=== PATIENT | female | born 1995 | race Caucasian/White ===

== ENCOUNTER 2024-07-16 14:20 | Emergency (ER) | payer OTHER ==
[~2024-07-16] VITALS: Ht 152.4 cm; Wt 52.6 kg
[~2024-07-16 14:20] MED LIST: HYDR-3980 PO; METO-295 PO
[2024-07-16] MEDS ORDERED: ONDANSETRON 4 MG/2 ML VIAL ONE (15:04)
[2024-07-16] MEDS ORDERED: HYDROMORPHONE 1 MG/1 ML DISP.SYRIN ONE (15:05)
[2024-07-16 15:20] LABS: BASOPHILS # (AUTO) 0.1 K/UL (0.0-0.2); BASOPHILS % (AUTO) 0.8 % (0.0-2.0); HEMATOCRIT 40.7 % (31.2-41.9); HEMOGLOBIN 13.7 g/dL (10.9-14.3); LYMPHOCYTES # (AUTO) 0.7 K/uL (0.8-4.8); LYMPHOCYTES % (AUTO) 6.2 % (20.5-51.5); MEAN CORPUSCULAR HEMOGLOBIN 31.9 uug (24.7-32.8); MEAN CORPUSCULAR HGB CONC 34 g/dL (32.3-35.6); MEAN CORPUSCULAR VOLUME 94.7 fL (75.5-95.3); MONOCYTES # (AUTO) 0.4 K/uL (0.1-1.30); MONOCYTES % (AUTO) 4.2 % (0.0-11.0); NEUTROPHILS # (AUTO) 9.3 K/uL (1.8-8.9); NEUTROPHILS % (AUTO) 88.8 % (38.5-71.5); PLATELET COUNT (AUTO) 278 K/uL (179-408); RED CELL DISTRIBUTION WIDTH 15.4 % (12.3-17.7); WHITE BLOOD COUNT (AUTO) 10.5 K/uL (3.8-11.8)
[2024-07-16] MEDS: HYDROMORPHONE 1 MG/1 ML DISP.SYRIN IV ONE (15:22)
[2024-07-16] MEDS: ONDANSETRON 4 MG/2 ML VIAL IV ONE (15:22)
[2024-07-16 15:27] LABS: CALCIUM 10.2 mg/dL (8.5-10.1); CARBON DIOXIDE 17 mmol/L (21-32); CHLORIDE 100 mmol/L (98-107); CREATININE 0.6 mg/dL (0.6-1.3); DIFFERENTIAL COMMENT 1; GLUCOSE 159 mg/dL (74-106); POTASSIUM 4.2 mmol/L (3.5-5.1); SODIUM SERUM 140 mmol/L (136-145); UREA NITROGEN, BLOOD 6 mg/dL (7-18)
[2024-07-16 15:36] LABS: ALANINE AMINOTRANSFERASE 230 U/L (14-59); ALBUMIN 4.9 g/dL (3.4-5.0); ALKALINE PHOSPHATASE 109 U/L (50-136); ASPARTATE AMINOTRANSFERASE 350 U/L (15-37); BILIRUBIN,DIRECT 0.2 mg/dL (0.0-0.2); BILIRUBIN,TOTAL 0.6 mg/dL (0.2-1.0); LIPASE 13 U/L (16-77); TOTAL PROTEIN, SERUM 9.3 g/dL (6.4-8.2)
[2024-07-16 15:48] LABS: *BILIRUBIN,URIN NEGATIVE (NEGATIVE); *BLOOD, URINE NEGATIVE (NEGATIVE); *CLARITY,URINE CLEAR (CLEAR); *COLOR,URINE YELLOW (YELLOW); *KETONES,URINE 4+ (NEGATIVE); *PROTEIN,URINE 2+ (NEGATIVE); *UROBILINOGEN,URINE 0.2 E.U./dl (NORMAL); LEUKOCYTE ESTERASE ,URINE NEGATIVE (NEGATIVE); NITRITE, URINE NEGATIVE (NEGATIVE); PH,URINE 5.5 (5.0-8.0); UGLUCOSE NEGATIVE (NEGATIVE)
[2024-07-16 15:52] LABS: PREGNANCY TEST SERUM QUAN < 1 miul/L (0-6)
[2024-07-16 15:54] LABS: *URINE HCG, QUAL NEGATIVE (NEGATIVE)
[2024-07-16 16:00] LABS: *AMPHETAMINE, URINE NEGATIVE (NEGATIVE); *BARBITURATE, URINE NEGATIVE (NEGATIVE); *BENZODIAZEPINE, URINE POSITIVE (NEGATIVE); *CANNABINOID, URINE POSITIVE (NEGATIVE); *COCCAINE, URINE NEGATIVE (NEGATIVE); *OPIATE, URINE NEGATIVE (NEGATIVE); *PHENCYCLIDINE SCREEN,URINE NEGATIVE (NEGATIVE); FENTANYL, URINE NEGATIVE (NEGATIVE)
[2024-07-16 16:14] LABS: RBC,URINE NONE SEEN /HPF (0-3)
[2024-07-16 16:15] LABS: BACTERIA,URINE FEW /HPF (NONE SEEN); SQUAMOUS EPITHELIAL CELL,UR MODERATE /HPF (NONE SEEN); WBC,URINE 0-3 /HPF (0-3)
[2024-07-16] MEDS: IV NORMAL SALINE 1000 ML BAG IV ONE (16:36)
[2024-07-16] MEDS ORDERED: HYDR-3980 PO (17:36)
[2024-07-16] MEDS ORDERED: HYDROCODONE/APAP 10-325 MG TABLET ONE (18:13)
[2024-07-16] MEDS: HYDROCODONE/APAP 10-325 MG TABLET PO ONE (18:15)
[2024-07-16 19:05] VITALS: BP 134/78; O2SAT 99
== END 2024-07-16 19:06 | disposition home or self-care (01) ==
LOC: ER 14:20
DX: K86.1 Other chronic pancreatitis (principal); R10.13 Epigastric pain; R10.2 Pelvic and perineal pain
CPT/HCPCS: 36415; 83690; 84484; 84703; 85025; 85730; 98960; A4606; A4663; G0480; J1171; J2405; J7040